=== PATIENT | female | born 1960 | race Caucasian/White ===

== ENCOUNTER 2017-01-24 10:28 | Inpatient (IN) | payer BC, OTHER ==
[~2017-01-24] VITALS: Ht 157.5 cm; Wt 63.6 kg
[~2017-01-24 10:28] MED LIST: ALPR-475 PO; ATOR40TA PO; ATOR40TA78 PO; CEFD300C37 PO; FLUO20CA8 PO; INSU100C SQ-INSULIN; INSU100I18 SQ-INSULIN; INSU100I28 SQ-INSULIN; INSU100V8 SQ; INSU300I SQ; LISI5TAB7 PO; MAGN400T26 PO; METO10TA82 PO; METR500T PO; ONDA4VIA4 PO; PANT40VI PO; PHOS250T3 PO; RABE20TA5 PO; VENL75TA PO; [UNRECOGNIZED DRUG - CODE] PO
[2017-01-24] MEDS ORDERED: ONDANSETRON 2MG/ML, 2ML IVPush ONE (11:00)
[2017-01-24] MEDS ORDERED: SODIUM CHLORIDE 0.9% 1,000ML IVBOLUS ONE (11:00)
[2017-01-24] MEDS ORDERED: ONDANSETRON 2MG/ML, 2ML ONE (11:16)
[2017-01-24 11:29] LABS: ASPARTATE AMINO TRANSFERASE 19 U/L (15-37); BLOOD UREA NITROGEN 20 mg/dL (7-18)
[2017-01-24 13:41] VITALS: BP 162/102
[2017-01-24] MEDS ORDERED: HYDROcodone/APAP 5/325 TABLET PO PRN (14:00)
[2017-01-24] MEDS ORDERED: DOCUSATE 100 MG CAPSULE PO PRN (14:00)
[2017-01-24] MEDS ORDERED: ENALAPRILAT 1.25 MG/ML, 2ML IV PRN (14:00)
[2017-01-24] MEDS ORDERED: ACETAMINOPHEN 325 MG TABLET PO PRN (14:00)
[2017-01-24] MEDS ORDERED: POLYETHYLENE GLYCOL 17 GM PACKET PO PRN (14:00)
[2017-01-24] MEDS ORDERED: LABETALOL 5MG/ML, 20ML IVPush PRN (14:00)
[2017-01-24] MEDS ORDERED: hydrALAzine 20 MG/ML, 1ML IV PRN (14:00)
[2017-01-24] MEDS: NS + 20MEQ KCL 1,000 ML IV SCH ×2 (14:00→22:48)
[2017-01-24] MEDS ORDERED: PROMETHAZINE 25 MG/ML, 1ML IM PRN (15:30)
[2017-01-24] MEDS ORDERED: PROMETHAZINE 25 MG SUPP PR PRN (16:00)
[2017-01-24] MEDS: METOCLOPRAMIDE 5 MG/ML, 2ML IVPush PRN (16:29)
[2017-01-24] MEDS: ONDANSETRON 2MG/ML, 2ML IVP PRN (18:48)
[2017-01-24 19:17] VITALS: BP 187/100
[2017-01-24] MEDS: ATORVASTATIN 40 MG TABLET PO SCH (21:00)
[2017-01-24] MEDS: ENOXAPARIN 40 MG/0.4 ML SQ SCH (21:00)
[2017-01-24] MEDS: VENLAFAXINE 75MG TABLET PO SCH (21:00)
[2017-01-24] MEDS ORDERED: PROMETHAZINE 25 MG/ML, 1ML IM ONE (23:00)
[2017-01-25] VITALS (9 sets, daily range): BP systolic 114–180; BP diastolic 76–120
[2017-01-25] MEDS: ONDANSETRON 2MG/ML, 2ML IVP PRN (00:49)
[2017-01-25] MEDS: METOCLOPRAMIDE 5 MG/ML, 2ML IVPush PRN (01:55)
[2017-01-25 05:07] LABS: BLOOD UREA NITROGEN 21 mg/dL (7-18)
[2017-01-25] MEDS: VENLAFAXINE 75MG TABLET PO SCH ×2 (09:00→21:05)
[2017-01-25] MEDS: LISINOPRIL 5 MG TABLET PO SCH (09:00)
[2017-01-25] MEDS ORDERED: INSULIN ASPART 100 UNITS/ML, PEN SQ-INSULIN SCH (11:00)
[2017-01-25] MEDS: INSULIN ASPART 100 UNITS/ML, PEN SQ-INSULIN SCH ×2 (11:41→21:09)
[2017-01-25] MEDS ORDERED: SODIUM CHLORIDE 0.9% 1,000ML IVBOLUS ONE (13:00)
[2017-01-25 13:14] LABS: BLOOD UREA NITROGEN 27 mg/dL (7-18)
[2017-01-25] MEDS ORDERED: SODIUM CHLORIDE 0.9% 1,000 ML IV SCH (15:00)
[2017-01-25 16:13] LABS: DAU SCREEN DISCLAIMER
[2017-01-25] MEDS: ATORVASTATIN 40 MG TABLET PO SCH (21:04)
[2017-01-25] MEDS: ENOXAPARIN 40 MG/0.4 ML SQ SCH (21:06)
[2017-01-26 01:20] VITALS: BP 110/72
[2017-01-26 06:54] LABS: BLOOD UREA NITROGEN 23 mg/dL (7-18)
[2017-01-26] MEDS: INSULIN ASPART 100 UNITS/ML, PEN SQ-INSULIN SCH (07:00)
[2017-01-26 07:26] VITALS: BP 131/85
[2017-01-26] MEDS: VENLAFAXINE 75MG TABLET PO SCH (09:00)
[2017-01-26] MEDS ORDERED: POTASSIUM CHLORIDE 20 MEQ PACKET PO ONE (09:00)
[2017-01-26] MEDS: LISINOPRIL 5 MG TABLET PO SCH (09:39)
[2017-01-26] MEDS ORDERED: POTASSIUM CHLORIDE 10 MEQ TABLET.ER ONE (09:45)
== END 2017-01-26 15:23 | disposition home or self-care (01) | DRG 74 ==
LOC: ED 10:50 → EDIP 12:15 → 3NE 13:30
PROVIDERS: ADMIT Hospitalist; ATTEND Family Medicine
DX: E11.43 Type 2 diabetes mellitus with diabetic autonomic (poly)neuropathy (principal); K52.9 Noninfective gastroenteritis and colitis, unspecified; E11.65 Type 2 diabetes mellitus with hyperglycemia; K31.84 Gastroparesis; E87.6 Hypokalemia; E86.0 Dehydration; I10 Essential (primary) hypertension; E78.5 Hyperlipidemia, unspecified; E88.81 Metabolic syndrome and other insulin resistance; Z96.41 Presence of insulin pump (external) (internal); Z91.19 Patient's noncompliance with other medical treatment and regimen; Z79.4 Long term (current) use of insulin; Z88.2 Allergy status to sulfonamides; Z88.5 Allergy status to narcotic agent; Z79.899 Other long term (current) drug therapy
CPT/HCPCS: 36415; 70450; 80048; 80053; 80307; 81001; 82010; 82800; 82947; 82962; 83036; 83690; 85025; 87086; 87324; 93005; 96361; 96374; J1650; J2405; J2550; J3480; J0360; J2765; J7030